=== PATIENT | male | born 1980 | race Two or more races ===

== ENCOUNTER 2016-10-26 10:55 | Emergency (ER) | payer MEDICAID ==
[~2016-10-26] VITALS: Ht 167.6 cm; Wt 72.6 kg
[~2016-10-26 10:55] MED LIST: BENADRYL25 MG ORAL; IBUPROFEN600 MG ORAL; NKM; PREDNISONE20 MG ORAL
[2016-10-26] MEDS ORDERED: Lidocaine 1% MPF 10mg/ml 5ml INJ ONE (11:30)
[2016-10-26] MEDS ORDERED: Bacitracin Oint UD TOPIC ONE (11:30)
[2016-10-26 12:02] VITALS: BP 116/79
[2016-10-26 14:04] VITALS: BP 120/75
[2016-10-26] MEDS ORDERED: Cephalexin 500mg cap ORAL ONE (14:15)
[2016-10-26] MEDS ORDERED: TRAMADOL HCL50 MG ORAL (14:16)
[2016-10-26] MEDS ORDERED: KEFLEX500 MG ORAL (14:16)
[2016-10-26] MEDS ORDERED: BACITRACIN15 GM TOPIC (14:16)
[2016-10-26] MEDS ORDERED: IBUPROFEN600 MG ORAL (14:16)
--- NOTE | 2016-10-26 14:22 | Emergency Room Report ---
History of Present Illness General Chief Complaint: Laceration Source: Patient Present Illness HPI Skill saw injury this AM. Fair amount of blood loss, controlled with pressure and elevation with dirty rag initially. Making wood piece to raise car. Pain 6 /10, sharp and throbbing when dependent. Ambidexterous, writes with R hand. Tetanus UTD (last year). No fevers, dec ROM, numbness. Allergies: Coded Allergies: NO KNOWN ALLERGIES (Unverified Allergy, Unknown, 07/12/15) Patient History Past Medical History: see triage record Social History: Denies: alcohol use Social History Narrative works several jobs Reviewed Nursing Documentation: PMH: Agreed, PSxH: Agreed Nursing Documentation-PMH Past Medical History: No Stated History Review of Systems Constitutional: Denies: fever Musculoskeletal: Reports: see HPI Skin: Reports: see HPI Neurological: Reports: see HPI Physical Exam Vital Signs Date Time Temp Pulse Resp B/P Pulse Ox O2 Delivery O2 Flow Rate FiO2 10/26/16 11:14 98.1 78 16 116/79 100 Room Air Sp02 EP Interpretation: reviewed, normal General Appearance: well appearing, no apparent distress, GCS 15 Head: normocephalic, atraumatic Eyes: bilateral eye normal inspection ENT: hearing grossly normal, normal voice Neck: full range of motion, supple Respiratory: no respiratory distress, speaking full sentences Cardiovascular #2: 2+ radial (L) - good cap fill Musculoskeletal: normal range of motion, other - tendons not involved Neurologic: motor strength/tone normal, sensory intact Psychiatric: mood/affect normal Skin: no rash Procedures Laceration/Wound Repair Laceration/Wound Repair : Consent: Verbal Wound Location: other - L middle finger Wound Length (cm): 1 - 1.5 cm Wound Explored: contaminated - on skin, no FB deep Betadine Prep?: Yes Anesthesia: 1% Lidocaine Wound Debrided: minimal Wound Repaired With: sutures Suture Size/Type: 5:0, nylon Layer Closure?: No Sterile Dressing Applied?: Yes Sling Applied?: Yes Patient Tolerated: Well Complications: Other - had to repeat digital block Progress Digital block. Repeated. Debrieded devitalized tissue and fully cleaned and irrigated. Trimmed nail. Bone slightly involved (not exposed). Approximated. Tolerated well. Medical Decision Making Diagnostic Impression: Primary Impression: Laceration of left middle finger Additional Impression: Minimal bone involvement ER Course Finger laceration with skill saw. Based on exam, bone involved with lac ( clinical diagnosis - no imaging indicated). Antibiotics indicated and full cleaning and wound closure. Sutured and cleaned with debridement of devitalized tissue (minimal). Explored and no FB in wound. Antibiotics begun here. Sling applied by tech. Position excellent. Prior ring block and tube (unable to check neurovasc, but good vasc before tube). Patient stable for outpatient observation and treatment. Status: improved Disposition: HOME, SELF-CARE Condition: Improved Scripts Bacitracin (Bacitracin) 28.4 Gm Oint...g. 1 APPLIC TOPIC BID, #10 GM Prov: Rogers Simental M.D. 10/26/16 Ibuprofen* (MOTRIN*) 600 Mg Tablet 600 MG ORAL Q6H Y for For Pain, #20 TAB Prov: Rogers Simental M.D. 10/26/16 Tramadol Hcl* (ULTRAM*) 50 Mg Tablet 50 MG ORAL Q6H Y for For Pain, #10 TAB 0 Refills Prov: Rogers Simental M.D. 10/26/16 Cephalexin* (KEFLEX*) 500 Mg Capsule 500 MG ORAL EVERY 6 HOURS, #28 CAP 0 Refills Prov: Rogers Simental M.D. 10/26/16 Departure Forms: Return to Work Return to Work in (Days): 1 Return to Work Date: Oct 27, 2016 Work Restrictions: No Heavy Lifting Other Restrictions: Keep L hand clean and dry. Unable to use L hand. Return to Full Activity: Nov 03, 2016 Patient Instructions: Laceration Care, Adult Additional Instructions: Take the antibiotics. You cut part of the bone. [place] los antibioticos. Corto un parte del hueso. Elevate the hand. Eleve ohara mano. Return in 7 days for suture removal. Regrese en 7 mercado para quitar las puntadas. Rogers Simental M.D. Oct 26, 2016 14:22
[2016-10-26 14:48] VITALS: BP 120/75
== END 2016-10-26 14:50 | disposition home or self-care (01) ==
LOC: EMR 11:46
DX: S61.213A Laceration without foreign body of left middle finger without damage to nail, initial encounter (principal); W27.0XXA Contact with workbench tool, initial encounter; Y92.89 Other specified places as the place of occurrence of the external cause
CPT/HCPCS: 12001; 29280; 99284; Z7502

== ENCOUNTER 2016-11-01 18:10 | Emergency (ER) | payer MEDICAID ==
[~2016-11-01] VITALS: Ht 167.6 cm; Wt 72.6 kg
[~2016-11-01 18:10] MED LIST changes: +BACITRACIN15 GM TOPIC; +KEFLEX500 MG ORAL; +TRAMADOL HCL50 MG ORAL
--- NOTE | 2016-11-01 19:11 | Emergency Room Report ---
History of Present Illness General Chief Complaint: Wound Recheck/Suture Removal Source: Patient Present Illness HPI 36-year-old male presents emergency department with previously sutured left middle finger laceration. Patient states he was seen here in the ER 7 days ago and had sutures placed. Patient denies erythema, discharge or tenderness to the laceration. Patient denies nausea, vomiting, fevers, chills patient denies pain. Patient states he has been applying antibiotic ointment. he states he is up-to-date with tetanus vaccinations. Denies numbness tingling or loss of sensation or gross motor movements of the extremities, incontinence of bowel or bladder. Denies CP, Palpitations, LOC, AMS, dizziness, Changes in Vision, Sensation, paresthesias, or a sudden severe headache. Allergies: Coded Allergies: NO KNOWN ALLERGIES (Unverified Allergy, Unknown, 07/12/15) Patient History Past Medical History: see triage record Past Surgical History: none Pertinent Family History: none Immunizations: UTD Reviewed Nursing Documentation: PMH: Agreed, PSxH: Agreed Nursing Documentation-PMH Past Medical History: No Stated History Review of Systems All Other Systems: negative except mentioned in HPI Physical Exam Vital Signs Date Time Temp Pulse Resp B/P Pulse Ox O2 Delivery O2 Flow Rate FiO2 11/01/16 18:31 97.9 68 14 143/79 97 Room Air Sp02 EP Interpretation: reviewed, normal General Appearance: no apparent distress, alert, GCS 15, non-toxic Head: normocephalic, atraumatic Eyes: bilateral eye PERRL, bilateral eye normal inspection ENT: hearing grossly normal, normal pharynx, no angioedema, normal voice Neck: full range of motion, supple/symm/no masses Respiratory: chest non-tender, lungs clear, normal breath sounds, speaking full sentences Cardiovascular #1: regular rate, rhythm, no edema Rectal: deferred Musculoskeletal: back normal, gait/station normal, normal range of motion, non- tender, no calf tenderness Neurologic: alert, oriented x3, responsive, motor strength/tone normal, sensory intact, speech normal Psychiatric: judgement/insight normal, memory normal, mood/affect normal, no suicidal/homicidal ideation Skin: normal color, no rash, warm/dry, well hydrated, wd healing/no infection noted - 3 sutures noted in the left distal middle finger. no evidence of infection. Lymphatic: no adenopathy Medical Decision Making PA Attestation Dr. thompson is my supervising Physician whom patient management has been discussed with. Diagnostic Impression: Primary Impression: Encounter for removal of sutures ER Course Pt. presents to the ED c/o 36-year-old male presents emergency department with previously sutured left middle finger laceration. Patient states he was seen here in the ER 7 days ago and had sutures placed. Patient denies erythema, discharge or tenderness to the laceration. Ddx considered but are not limited to laceration, tendon injury, cellulitis, dehiscence. Vital signs: are WNL, pt. is afebrile H&PE are most consistent with: healed laceration of the left middle finger. ORDERS: none required at this time, the diagnosis is clinical ED INTERVENTIONS: - 3 Sutures removed. pt. tolerated well, there were no complications. DISCHARGE: At this time pt. is stable for d/c to home. Will provide printed patient care instructions, and any necessary prescriptions. Care plan and follow up instructions have been discussed with the patient prior to discharge. Last Vital Signs Date Time Temp Pulse Resp B/P Pulse Ox O2 Delivery O2 Flow Rate FiO2 11/01/16 18:31 97.9 68 14 143/79 97 Room Air Disposition: HOME, SELF-CARE Condition: Stable Referrals: [facility],REFERRING (PCP) Patient Instructions: Suture Removal, Care After Additional Instructions: Take medications as directed. Follow up with PCP in 3-5 days Return sooner to ED if new symptoms occur, or current symptoms become worse. Sparkle Jameson Nov 01, 2016 19:11
[2016-11-01 19:30] VITALS: BP_SYST 138; BP_SYST 143; BP_DIAS 79; BP_DIAS 82
== END 2016-11-01 19:31 | disposition home or self-care (01) ==
LOC: EMR 19:07
DX: S61.213D Laceration without foreign body of left middle finger without damage to nail, subsequent encounter (principal); Z48.02 Encounter for removal of sutures
CPT/HCPCS: 99281

== ENCOUNTER 2017-07-11 13:59 | Emergency (ER) | payer MEDICAID ==
[~2017-07-11] VITALS: Ht 167.6 cm; Wt 72.6 kg
--- NOTE | 2017-07-11 14:37 | Emergency Room Report ---
History of Present Illness General Chief Complaint: Sore Throat Source: Patient Present Illness HPI 37 YO Male Presents to the ED c/o Right sided sore throat and upper molar/gum pain x 1 week with fevers, recent tooth extraction in the right molars was not given abx. denies hoarseness, neck pain/stiffness. has been taking Motrin PO, pt. denies SOB, swelling of the lips or tongue. denies cough, [place], recent travel or ill contacts. pt. is UTD with vaccinations. Denies CP, Palpitations, LOC, AMS , dizziness, Changes in Vision, Sensation, paresthesias, or a sudden severe headache. Allergies: Coded Allergies: NO KNOWN ALLERGIES (Unverified Allergy, Unknown, 07/12/15) Patient History Past Medical History: see triage record Past Surgical History: none Pertinent Family History: none Immunizations: UTD Reviewed Nursing Documentation: PMH: Agreed, PSxH: Agreed Nursing Documentation-PMH Past Medical History: No Stated History Review of Systems All Other Systems: negative except mentioned in HPI Physical Exam Vital Signs Date Time Temp Pulse Resp B/P (MAP) Pulse Ox O2 Delivery O2 Flow Rate FiO2 07/11/17 14:07 99.7 102 16 136/86 97 Room Air Sp02 EP Interpretation: reviewed, normal General Appearance: no apparent distress, alert, GCS 15, non-toxic Head: normocephalic, atraumatic Eyes: bilateral eye normal inspection, bilateral eye PERRL ENT: hearing grossly normal, normal pharynx, no angioedema, normal voice, TMs + canals normal, uvula midline, moist mucus membranes, other - TTP to the gumline where tooth No. 2 should be. tooth is surgically absent, no fluctuance, no d/c , no bleeding, the gum is healed no evidence of dry socket. Neck: full range of motion, supple/symm/no masses Respiratory: lungs clear, normal breath sounds, speaking full sentences Cardiovascular #1: regular rate, rhythm, tachycardia Musculoskeletal: back normal, gait/station normal, normal range of motion, non- tender Neurologic: alert, oriented x3, responsive, motor strength/tone normal, sensory intact, speech normal Psychiatric: judgement/insight normal, memory normal, mood/affect normal Skin: normal color, no rash, warm/dry, well hydrated Lymphatic: no adenopathy Medical Decision Making PA Attestation Dr. thompson is my supervising Physician whom patient management has been discussed with. Diagnostic Impression: Primary Impression: Dental infection ER Course 37 YO Male Presents to the ED c/o Right sided sore throat and upper molar/gum pain x 1 week with fevers, recent tooth extraction in the right molars was not given abx. denies hoarseness, neck pain/stiffness. has been taking motrin PO, pt. denies SOB, swelling of the lips or tongue. denies cough, [place], recent travel or ill contacts. pt. is UTD with vaccinations. Denies CP, Palpitations, LOC, AMS , dizziness, Changes in Vision, Sensation, paresthesias, or a sudden severe headache. Ddx considered but are not limited to:tooth abscess, tooth avulsion, [employer], ludwigs angina, cellulitis Vital signs: are WNL, pt. is afebrile H&PE are most consistent with: Tooth infection . TTP to the gumline where tooth No. 2 should be. tooth is surgically absent, no fluctuance, no d/c , no bleeding , the gum is healed no evidence of dry socket. ORDERS: None required at this time as the diagnosis is clinical ED INTERVENTIONS: none required at this time. - D/w pt. Dentist Follow up in the next 2 days is recommended. return to the ED promptly with worsening or new symptoms. DISCHARGE: At this time pt. is stable for d/c to home. Will provide printed patient care instructions, and any necessary prescriptions. Care plan and follow up instructions have been discussed with the patient prior to discharge. Last Vital Signs Date Time Temp Pulse Resp B/P (MAP) Pulse Ox O2 Delivery O2 Flow Rate FiO2 07/11/17 14:07 99.7 102 16 136/86 97 Room Air Disposition: HOME, SELF-CARE Condition: Stable Scripts Ibuprofen* (MOTRIN*) 600 Mg Tablet 600 MG ORAL THREE TIMES A DAY, #30 TAB 0 Refills Prov: Sparkle Jameson P.A. 07/11/17 Amoxicillin* (AMOXIL*) 500 Mg Capsule 500 MG ORAL BID for 7 Days, #14 CAP Prov: Sparkle Jameson P.A. 07/11/17 Patient Instructions: Dental Abscess Additional Instructions: Take medications as directed. Follow up with a Primary Care Provider in 3 days, even if your symptoms have resolved. __FOLLOW UP WITH YOUR DENTIST as well. --Please review list of primary care clinics, if you do not already have a primary care provider Return sooner to ED if new symptoms occur, or current symptoms become worse. - Please note that this Emergency Department Report was dictated using [employer] technology software, occasionally this can lead to erroneous entry secondary to interpretation by the dictation equipment. Sparkle Jameson Jul 11, 2017 14:37
[2017-07-11] MEDS ORDERED: AMOXICILLIN500 MG ORAL (14:42)
[2017-07-11] MEDS ORDERED: IBUPROFEN600 MG ORAL (14:42)
[2017-07-11 14:55] VITALS: BP 138/88
== END 2017-07-11 15:00 | disposition home or self-care (01) ==
LOC: EMR 14:36
DX: K08.89 Other specified disorders of teeth and supporting structures (principal); K04.7 Periapical abscess without sinus
CPT/HCPCS: 99283

== ENCOUNTER 2017-07-18 16:30 | Emergency (ER) | payer MEDICAID ==
[~2017-07-18] VITALS: Ht 167.6 cm; Wt 72.6 kg
[~2017-07-18 16:30] MED LIST changes: +AMOXICILLIN500 MG ORAL
[2017-07-18 17:17] VITALS: BP 120/86
[2017-07-18] MEDS ORDERED: Bacitracin Oint UD TOPIC ONE (17:45)
[2017-07-18] MEDS ORDERED: Lidocaine 1% MPF 10mg/ml 5ml INJ ONE (17:45)
[2017-07-18] MEDS ORDERED: IBUPROFEN600 MG ORAL (18:08)
[2017-07-18 18:40] VITALS: BP 120/86
--- NOTE | 2017-07-18 21:28 | Emergency Room Report ---
History of Present Illness General Chief Complaint: Laceration Source: Patient Present Illness HPI The patient is a 37-year-old male presenting for hand laceration. This occurred today. He states that he was working with a metal object which slipped and myers the skin of his right middle finger. He denies any pain at this time. Last tetanus shot was one year prior. He denies any other symptoms including numbness or tingling Allergies: Coded Allergies: NO KNOWN ALLERGIES (Unverified Allergy, Unknown, 07/12/15) Patient History Past Medical History: see triage record Pertinent Family History: none Reviewed Nursing Documentation: PMH: Agreed, PSxH: Agreed Nursing Documentation-PMH Past Medical History: No Stated History Review of Systems All Other Systems: negative except mentioned in HPI Physical Exam Vital Signs Date Time Temp Pulse Resp B/P (MAP) Pulse Ox O2 Delivery O2 Flow Rate FiO2 07/18/17 17:12 97.9 72 16 120/86 96 Room Air Sp02 EP Interpretation: reviewed, normal General Appearance: no apparent distress, alert, GCS 15, non-toxic Head: normocephalic, atraumatic Eyes: bilateral eye normal inspection, bilateral eye PERRL ENT: hearing grossly normal, no angioedema, normal voice Neck: full range of motion, supple/symm/no masses Respiratory: chest non-tender, lungs clear, normal breath sounds, speaking full sentences Cardiovascular #1: regular rate, rhythm, no edema Musculoskeletal: back normal, gait/station normal, normal range of motion, non- tender Neurologic: alert, oriented x3, responsive, motor strength/tone normal, sensory intact, speech normal Psychiatric: judgement/insight normal, memory normal, mood/affect normal, no suicidal/homicidal ideation Skin: warm/dry, well hydrated, laceration - 1cm linear laceration to R palmar surface of 3rd finger over PIPJ Procedures Laceration/Wound Repair Laceration/Wound Repair : Consent: Verbal Wound Location: upper extremity - 3rd finger Wound's Depth, Shape: superficial, linear Wound Length (cm): 1 Wound Explored: clean Irrigated w/ Saline (ccs): 100 Betadine Prep?: Yes Anesthesia: 1% Lidocaine Volume Anesthetic (ccs): 5 Wound Debrided: minimal Wound Repaired With: sutures Suture Size/Type: 4:0, nylon Number of Sutures: 2 Layer Closure?: No Sterile Dressing Applied?: Yes Splint Applied?: Yes Type of Splint Applied: finger splint Sling Applied?: No Patient Tolerated: Well Complications: None Medical Decision Making PA Attestation Dr. Marie is my supervising physician. Patient management was discussed with my supervising physician Diagnostic Impression: Primary Impression: Finger laceration Qualified Codes: S61.212A - Laceration without foreign body of right middle finger without damage to nail, initial encounter ER Course The patient is a 37-year-old male presenting for hand laceration Ddx considered include but not limited to fracture, tendon/ligament injury, avulsion, nerve damage PE: No apparent distress There is a 1 cm linear laceration over the right volar surface of third PIP joint. Full active range of motion is intact. Sensation is intact. Active bleeding The wound was irrigated with normal saline and cleaned with betadine. A 27g needle was used to administer 5mL of lidocaine w.o epi for digital block. 3 sutures were placed with 4-0 nylon The wound was well approximated and the patient tolerated the procedure well. The wound was then cleaned and bacitracin was applied. A metal finger splint was applied with bacitracin The patient will continue to keep the wound clean and dry and will followup with PMD and workers compensation. Suture instructions provided. ER precautions are given Last Vital Signs Date Time Temp Pulse Resp B/P (MAP) Pulse Ox O2 Delivery O2 Flow Rate FiO2 07/18/17 18:40 97.9 72 16 120/86 96 Room Air Status: improved Disposition: HOME, SELF-CARE Condition: Improved Scripts Ibuprofen* (MOTRIN*) 600 Mg Tablet 600 MG ORAL Q8H Y for For Pain, #30 TAB 0 Refills Prov: TRACY OLEA 07/18/17 Referrals: NON PHYSICIAN (PCP) Patient Instructions: Laceration Care, Adult Additional Instructions: I discussed my findings with the patient. All questions and concerns have been answered. Treatment and medication compliance have been addressed. I advised the patient that they need to follow up with PMD in 7 days for wound check and suture removal. If you are unable to see PMD, return to the ED in 7 days. Return to ED if pain remains or worsens, you notice discharge from the wound, the wound continues to bleed, the suture/s fall out, you notice a fever or chills, or for any reason. Patient is advised to keep the wound clean and apply an antibacterial ointment. Patient verbalized understanding of discharge instructions. TRACY OLEA Jul 18, 2017 21:28
== END 2017-07-18 18:40 | disposition home or self-care (01) ==
LOC: EMR 18:40
DX: S61.212A Laceration without foreign body of right middle finger without damage to nail, initial encounter (principal); W26.9XXA Contact with unspecified sharp object(s), initial encounter; Y93.9 Activity, unspecified; Y99.9 Unspecified external cause status
CPT/HCPCS: 12001; 99283; Z7502

== ENCOUNTER 2017-07-24 18:44 | Emergency (ER) | payer MEDICAID ==
[~2017-07-24] VITALS: Ht 167.6 cm; Wt 72.6 kg
[2017-07-24] MEDS ORDERED: BACITRACIN-P28.35 GM TP (18:57)
--- NOTE | 2017-07-24 18:57 | Emergency Room Report ---
History of Present Illness General Chief Complaint: Wound Recheck/Suture Removal Source: Patient Present Illness HPI 37 YO Male presents to the ED c/o 2 sutures in the right middle finger that need to be removed s/p wound closure 7 days ago. reports some erythema and tenderness. denies fevers, chills, or d/c. denies itching, blisters, bleeding. Denies numbness tingling or loss of sensation or gross motor movements of the extremities, incontinence of bowel or bladder. Denies CP, Palpitations, LOC, AMS , dizziness, Changes in Vision, Sensation, paresthesias, or a sudden severe headache. Allergies: Coded Allergies: NO KNOWN ALLERGIES (Unverified Allergy, Unknown, 07/12/15) Patient History Past Medical History: see triage record Past Surgical History: none Pertinent Family History: none Immunizations: UTD Reviewed Nursing Documentation: PMH: Agreed, PSxH: Agreed Nursing Documentation-PMH Past Medical History: No Stated History Review of Systems All Other Systems: negative except mentioned in HPI Physical Exam Vital Signs Date Time Temp Pulse Resp B/P (MAP) Pulse Ox O2 Delivery O2 Flow Rate FiO2 07/24/17 18:47 98.4 80 18 124/90 98 Room Air Sp02 EP Interpretation: reviewed, normal General Appearance: no apparent distress, alert, GCS 15, non-toxic Head: normocephalic, atraumatic Eyes: bilateral eye normal inspection, bilateral eye PERRL ENT: hearing grossly normal, normal voice Neck: full range of motion Respiratory: lungs clear, normal breath sounds, speaking full sentences Cardiovascular #1: normal capillary refill Musculoskeletal: back normal, gait/station normal, normal range of motion Neurologic: alert, oriented x3, responsive, motor strength/tone normal, sensory intact, speech normal Skin: normal color, no rash, warm/dry, well hydrated, other - wound healing, [address] mild erythema and tenderness noted, no purulent d/c , no crusting, no dehiscence. Lymphatic: no adenopathy Medical Decision Making PA Attestation Dr. Saldana is my supervising Physician whom patient management has been discussed with. Diagnostic Impression: Primary Impression: Encounter for removal of sutures ER Course 37 YO Male presents to the ED c/o 2 sutures in the right middle finger that need to be removed s/p wound closure 7 days ago. reports some erythema and tenderness. denies fevers, chills, or d/c. denies itching, blisters, bleeding. Denies numbness tingling or loss of sensation or gross motor movements of the extremities, incontinence of bowel or bladder. Denies CP, Palpitations, LOC, AMS , dizziness, Changes in Vision, Sensation, paresthesias, or a sudden severe headache. Ddx considered but are not limited to laceration, tendon injury, cellulitis, dehiscence. Vital signs: are WNL, pt. is afebrile H&PE are most consistent with: healed laceration of the right middle finger, [address], mild erythema noted in the soft tissues, no dehiscence, no purulence. suspicious for mild cellulitis. ORDERS: none required at this time, the diagnosis is clinical ED INTERVENTIONS: - 2 Sutures removed. -d/w pt. to monitor for progression of area of erythema. will give pO and Topical abx. DISCHARGE: At this time pt. is stable for d/c to home. Will provide printed patient care instructions, and any necessary prescriptions. Care plan and follow up instructions have been discussed with the patient prior to discharge. Last Vital Signs Date Time Temp Pulse Resp B/P (MAP) Pulse Ox O2 Delivery O2 Flow Rate FiO2 07/24/17 18:47 98.4 80 18 124/90 98 Room Air Disposition: HOME, SELF-CARE Condition: Stable Scripts Cephalexin* (KEFLEX*) 500 Mg Capsule 500 MG ORAL EVERY 12 HOURS for 7 Days, #14 CAP 0 Refills Prov: Sparkle Jameson 07/24/17 Bacitracin/Polymyxin B Sulfate (BACITRACIN-POLYMYXIN OINTMENT) 28.35 Gm Oint...g. 1 APPLIC TP BID, #28.3 GM Prov: Sparkle Jameson 07/24/17 Patient Instructions: Suture Removal, Care After Additional Instructions: Take medications as directed. Follow up with a Primary Care Provider in 3-5 days, even if your symptoms have resolved. Return sooner to ED if new symptoms occur, or current symptoms become worse. - Please note that this Emergency Department Report was dictated using [employer] technology software, occasionally this can lead to erroneous entry secondary to interpretation by the dictation equipment. Sparkle Jameson Jul 24, 2017 18:57
[2017-07-24 19:00] VITALS: BP 124/90
[2017-07-24] MEDS ORDERED: CEPHALEXIN500 MG ORAL (19:04)
[2017-07-24 19:13] VITALS: BP 119/82
== END 2017-07-24 19:15 | disposition home or self-care (01) ==
LOC: EMR 19:05
DX: Z48.02 Encounter for removal of sutures (principal)
CPT/HCPCS: 99283

== ENCOUNTER 2018-06-03 09:41 | Emergency (ER) | payer MEDICAID ==
[~2018-06-03] VITALS: Ht 167.6 cm; Wt 72.6 kg
[~2018-06-03 09:41] MED LIST changes: +BACITRACIN-P28.35 GM TP; +CEPHALEXIN500 MG ORAL
[2018-06-03 09:50] VITALS: BP 125/87
--- NOTE | 2018-06-03 10:04 | Emergency Room Report ---
History of Present Illness General Chief Complaint: Male Urogenital Problems Source: Patient Present Illness HPI Patient is a 37-year-old male who presented after increased dysuria for 3 days. Patient reports having increased rash to his penis which is nonpainful. He denies any fever. He denies any urethral discharge. The patient denies any flank pain or vomiting. He denies any testicle pain or swelling. Allergies: Coded Allergies: NO KNOWN ALLERGIES (Unverified Allergy, Unknown, 07/12/15) Patient History Past Medical History: see triage record Reviewed Nursing Documentation: PMH: Agreed; PSxH: Agreed Nursing Documentation-PMH Past Medical History: No Stated History Review of Systems All Other Systems: negative except mentioned in HPI Physical Exam Vital Signs Date Time Temp Pulse Resp B/P (MAP) Pulse Ox O2 Delivery O2 Flow Rate FiO2 06/03/18 09:44 97.8 71 18 125/87 98 Room Air 97.9 General Appearance: well appearing, no apparent distress, alert, GCS 15 Head: normocephalic, atraumatic ENT: hearing grossly normal, normal voice Neck: full range of motion, supple Respiratory: normal inspection, lungs clear, normal breath sounds, no respiratory distress, speaking full sentences Cardiovascular #1: normal inspection, normal peripheral pulses, regular rate, rhythm, no edema Genitourinary: other - penile rash, small discreet papules without ulceration Musculoskeletal: no calf tenderness Neurologic: normal inspection, alert, oriented x3, normal gait Psychiatric: mood/affect normal Skin: other - see gu Medical Decision Making Diagnostic Impression: Primary Impression: Urethritis ER Course Patient presented for dysuria. Differential diagnosis included was not limited to appendicitis, urinary tract infection, urethritis, herpes among others. Patient has a benign exam and does not appear to require any further imaging or laboratory testing at this time. The patient has some small papular lesions to his penis which may represent herpes outbreak. The patient be empirically treated. The urinalysis showed no evidence of urinary tract infection. The patient was given a prescription for acyclovir. He was advised to follow-up with outpatient STD testing. Labs Test 06/03/18 09:40 Urine Color Pale yellow Urine Appearance Clear Urine pH 6 (4.5-8.0) Urine Specific [place] 1.015 (1.005-1.035) Urine Protein Negative (NEGATIVE) Urine Glucose (UA) Negative (NEGATIVE) Urine Ketones Negative (NEGATIVE) Urine Blood Negative (NEGATIVE) Urine Nitrite Negative (NEGATIVE) Urine Bilirubin Negative (NEGATIVE) Urine Urobilinogen Normal MG/DL (0.0-1.0) Urine Leukocyte Esterase Negative (NEGATIVE) Last Vital Signs Date Time Temp Pulse Resp B/P (MAP) Pulse Ox O2 Delivery O2 Flow Rate FiO2 06/03/18 09:50 97.9 71 18 125/87 98 Room Air 97.9 Status: improved Disposition: HOME, SELF-CARE Condition: Stable Scripts Acyclovir* (ZOVIRAX*) 800 Mg Tablet 800 MG ORAL FIVE TIMES A DAY, #35 TAB Prov: Steven Farrar MD 06/03/18 Steven Farrar MD Jun 03, 2018 10:04
[2018-06-03 10:31] LABS: APPEARANCE,URINE CLEAR; BILIRUBIN, URINE NEGATIVE (NEGATIVE); COLOR,URINE PALE YELLOW; GLUCOSE, URINE (UA) NEGATIVE (NEGATIVE); KETONES,URINE NEGATIVE (NEGATIVE); LEUKOCYTE ESTERASE ,URINE NEGATIVE (NEGATIVE); NITRITE,URINE NEGATIVE (NEGATIVE); PH,URINE 6 (4.5-8.0); PROTEIN,URINE NEGATIVE (NEGATIVE); UROBILINOGEN,URINE NORMAL MG/DL (0.0-1.0)
[2018-06-03] MEDS ORDERED: ACYCLOVIR800 MG ORAL (11:06)
[2018-06-03 11:28] VITALS: BP 125/87
== END 2018-06-03 11:30 | disposition home or self-care (01) ==
LOC: EMR 09:50
DX: R30.0 Dysuria (principal)
CPT/HCPCS: 81003; 99283

== ENCOUNTER 2019-07-22 12:59 | Emergency (ER) | payer MEDICAID, OTHER ==
[~2019-07-22] VITALS: Ht 167.6 cm; Wt 72.6 kg
[~2019-07-22 12:59] MED LIST changes: +ACYCLOVIR800 MG ORAL
[2019-07-22 13:05] VITALS: BP 151/105
[2019-07-22] MEDS ORDERED: Lidocaine 1% Plain 30 ml INJ ONE (13:30)
--- NOTE | 2019-07-22 14:04 | Diagnostic Imaging Report ---
Indication: left hand pain. Comparison: None Findings: 3 views of the left hand were obtained. There is a penetrating foreign body projected over the left thumb. This appears to be in the soft tissue. No acute fracture is appreciated. IMPRESSION: Penetrating injury to the thumb. The foreign body is adjacent to the middle and distal phalange.
--- NOTE | 2019-07-22 14:27 | Emergency Room Report ---
History of Present Illness General Chief Complaint: Puncture Wound Source: Patient Present Illness HPI 39-year-old male with no symptom past medical history here after puncture wound with a metal nail in the left thumb that happened 20 minutes prior to arrival to the ED. An obvious metal needle was noted with insertion and exit point left arm. Patient has full range of motion, no motor or sensory deficits noted. Denies any other injuries, and is not up-to-date with tetanus shot. No chest pain, shortness of breath, palpitation, and other associated symptoms. Allergies: Coded Allergies: NO KNOWN ALLERGIES (Unverified Allergy, Unknown, 07/12/15) Patient History Past Medical History: see triage record Past Surgical History: unable to obtain Pertinent Family History: none Immunizations: other - Tdap given today Reviewed Nursing Documentation: PMH: Agreed; PSxH: Agreed Nursing Documentation-PMH Past Medical History: No Stated History Review of Systems All Other Systems: negative except mentioned in HPI Physical Exam Vital Signs Date Time Temp Pulse Resp B/P (MAP) Pulse Ox O2 Delivery O2 Flow Rate FiO2 07/22/19 13:05 98.4 66 18 151/105 (120) 98 Room Air Sp02 EP Interpretation: reviewed, normal General Appearance: no apparent distress, alert, GCS 15, non-toxic Head: normocephalic, atraumatic Eyes: bilateral eye normal inspection, bilateral eye PERRL ENT: hearing grossly normal, normal pharynx, no angioedema, normal voice Neck: full range of motion, supple/symm/no masses Respiratory: chest non-tender, lungs clear, normal breath sounds, no wheezing, speaking full sentences Cardiovascular #1: regular rate, rhythm, no edema, no murmur Cardiovascular #2: 2+ radial (R), 2+ radial (L) Gastrointestinal: normal bowel sounds, non tender, soft, non-distended, no guarding, no rebound Genitourinary: no CVA tenderness Musculoskeletal: back normal, digits/nails normal, gait/station normal, normal range of motion, non-tender, other - Metal needle puncture to left thumb Neurologic: alert, oriented x3, responsive, motor strength/tone normal, sensory intact, speech normal Psychiatric: judgement/insight normal, memory normal, mood/affect normal, no suicidal/homicidal ideation Skin: other - puncture wound left thumb Lymphatic: normal inspection Procedures Laceration/Wound Repair Laceration/Wound Repair : Consent: Verbal Wound Location: upper extremity - left thumb Wound's Depth, Shape: into muscle Wound Length (cm): 1 Wound Explored: contaminated Anesthesia: 1% Lidocaine Volume Anesthetic (ccs): 20 Layer Closure?: Yes Sterile Dressing Applied?: Yes Splint Applied?: No Patient Tolerated: Well Complications: None Progress metal needle was removed after digital block Medical Decision Making PA Attestation All diagnoses and treatment plans were reviewed and discussed with my supervising physician Dr. Simental Diagnostic Impression: Primary Impression: Puncture wound ER Course 39-year-old male with no symptom past medical history here after puncture wound with a metal nail in the left thumb that happened 20 minutes prior to arrival to the ED. An obvious metal needle was noted with insertion and exit point left arm. Patient has full range of motion, no motor or sensory deficits noted. Denies any other injuries, and is not up-to-date with tetanus shot. No chest pain, shortness of breath, palpitation, and other associated symptoms. Ddx considered but are not limited to : Puncture wound with foreign body, puncture wound without foreign body superficial laceration, deep laceration, tendon involvement with laceration, laceration with foreign body Vital signs: are WNL, pt. is afebrile H&PE are most consistent with: Puncture wound with foreign body ORDERS: Bactrim DS, Keflex, ibuprofen, x-ray left hand ED INTERVENTIONS: Foreign body removal from the puncture wound, wound clean and dressed DISCHARGE: At this time pt. is stable for d/c to home. Will provide printed patient care instructions, and any necessary prescriptions. Care plan and follow up instructions have been discussed with the patient prior to discharge. I gave patient information to Dr. Jose Ramon crawford, and also follow-up with her for hospitalist at this time it is not neurovascularly affected/advised patient is to follow-up with her primary care provider if worsening symptoms return to the emergency room. Other X-Ray Diagnostic Results Other X-Ray Diagnostic Results : X-Ray ordered: Left hand # of Views/Limited Vs Complete: 3 View Indication: Pain EP Interpretation: Yes PA Xray: Interpretation reviewed, by supervising MD, and agrees with findings. Interpretation: other - Obvious foreign body with insertion and exertion point Impression: Other - Puncture wound with foreign body Electronically Signed by: Corey Jung PA-C Last Vital Signs Date Time Temp Pulse Resp B/P (MAP) Pulse Ox O2 Delivery O2 Flow Rate FiO2 07/22/19 13:05 98.4 66 18 151/105 98 Room Air Disposition: HOME, SELF-CARE Condition: Stable Scripts Ibuprofen (Ibu) 800 Mg Tablet 800 MG PO TID, #30 TAB Prov: Corey Xie 07/22/19 Cephalexin* (KEFLEX*) 500 Mg Capsule 500 MG ORAL EVERY 6 HOURS for 7 Days, #28 CAP Prov: Corey Xie 07/22/19 Trimethoprim/Sulfamethoxazole 160/800* (BACTRIM DS TABLET*) 1 Each Tablet 1 TAB ORAL TWICE A DAY for 7 Days, #14 TAB Prov: Corey Xie 07/22/19 Patient Instructions: Puncture Wound Additional Instructions: Take medication as directed, follow-up with your primary care provider for referral to hand specialist if worsening symptoms return to the emergency room. Corey Xie Jul 22, 2019 14:27
[2019-07-22] MEDS ORDERED: BACTRIM DS TAB1 EAC1 ORAL (14:29)
[2019-07-22] MEDS ORDERED: IBU800 MG PO (14:29)
[2019-07-22] MEDS ORDERED: CEPHALEXIN500 MG ORAL (14:29)
[2019-07-22] MEDS ORDERED: Surgicel 4in x 8in TOPIC ONE (14:30)
--- NOTE | 2019-07-22 14:45 | NUR ---
ER DISCHARGE NOTE: Patient is cleared to be discharged per ERMD, pt is aox4, on room air, with stable vital signs. pt was given dc and prescription instructions, pt was able to verbalize understanding, pt is able to ambulate with steady gait. pt took all belongings.
[2019-07-22 17:45] VITALS: BP 140/81
== END 2019-07-22 15:00 | disposition home or self-care (01) ==
LOC: EMR 13:47
DX: S61.042A Puncture wound with foreign body of left thumb without damage to nail, initial encounter (principal); W45.0XXA Nail entering through skin, initial encounter; Y93.89 Activity, other specified; Y92.219 Unspecified school as the place of occurrence of the external cause; Y99.0 Civilian activity done for income or pay
CPT/HCPCS: 12041; 73130; 99283; J2001